=== PATIENT | female | born 1985 | race Caucasian/White ===

== ENCOUNTER 2024-11-14 11:54 | Emergency (ER) | payer OTHER ==
[2024-11-14 12:02] VITALS: RESP 18; BMI 26.6
[2024-11-14] MEDS ORDERED: ONDANSETRON 4 MG/2 ML VIAL ONE (12:35)
[2024-11-14] MEDS: ONDANSETRON 4 MG/2 ML VIAL IVPUSH ONE (12:55)
[2024-11-14 13:02] LABS: ABSOLUTE IMMATURE GRANULOCYTES 0.02 x10^3/uL (0.0-0.031); BASOPHILS # 0.02 x10^3/uL (0.01-0.08); EOSINOPHIL % 2.5 % (0.7-5.8); EOSINOPHILS # 0.11 x10^3/uL (0.04-0.36); MCHC 32.9 g/dl (32.2-35.5); MEAN CELL VOLUME 82.9 fl (79.4-94.8); MEAN PLT VOLUME 10.9 fl (9.4-12.3); MONOCYTE # 0.32 x10^3/uL (0.24-0.86); MONOCYTE % 7.2 % (4.7-12.5); RDW 13.2 % (12.1-16.8)
[2024-11-14 13:08] LABS: HCG,QUALITATIVE URINE Positive
[2024-11-14 13:11] LABS: EPI CELLS 6 /uL (0-25.1); HYALINE CASTS 0 /uL (0-3.1); URINE APPEARANCE CLEAR; URINE BACTERIA 31 /uL (0-1359); URINE BILIRUBIN NEGATIVE (NEGATIVE); URINE COLOR YELLOW; URINE GLUCOSE (UA) NEGATIVE (NEGATIVE); URINE KETONE NEGATIVE (NEGATIVE); URINE LEUK ESTERASE NEGATIVE (NEGATIVE); URINE NITRITE NEGATIVE (NEGATIVE); URINE PROTEIN NEGATIVE (NEGATIVE); URINE RBC 30 /uL (0-23.9); URINE UROBILINOGEN 0.2 mg/dL (0.2-1.0); URINE WBC 18 /uL (0-25.8)
[2024-11-14 13:26] LABS: CO2 22.0 mmol/L (21-32); GLUCOSE,RANDOM 100.0 mg/dL (74-106)
[2024-11-14 13:29] LABS: CREATININE 0.5 mg/dL (0.55-1.3); SGOT/AST 12.0 U/L (15-37); SGPT/ALT 19.0 U/L (13-61)
[2024-11-14 13:31] LABS: TOT PROT 7.2 g/dl (6.4-8.2)
[2024-11-14 13:32] LABS: ALK PHOS 56.0 U/L (45-117)
[2024-11-14 14:16] VITALS: BP 99/66; PULSE 96; TEMP 98
[2024-11-14 14:21] LABS: HCV DIAGNOSTIC IN-HOUSE W/RFLX NON-REACTIVE (NONREACTIVE)
[2024-11-14 14:22] LABS: HIV INTERPRETATION NEGATIVE (NEGATIVE)
== END 2024-11-14 14:47 | disposition home or self-care (01) ==
LOC: JER 11:54
DX: O09.521 Supervision of elderly multigravida, first trimester (principal); O99.891 Other specified diseases and conditions complicating pregnancy; R11.0 Nausea; R30.0 Dysuria; Z3A.01 Less than 8 weeks gestation of pregnancy
CPT/HCPCS: 36415; 80053; 81003; 84702; 84703; 85025; 86803; 87086; 87389; 87491; 87591; 87661; 99283-25